=== PATIENT | female | born 1980 | race Hispanic/Latino ===

== ENCOUNTER → 2019-09-16 | Outpatient (CLI) | payer OTHER | END | disposition home or self-care (01) | LOC: RAH 10:00 | PROVIDERS: ATTEND Obstetrics & Gynecology | DX: Z12.31 Encounter for screening mammogram for malignant neoplasm of breast (principal); R10.2 Pelvic and perineal pain | CPT/HCPCS: 76856; 77067 ==

== ENCOUNTER → 2020-11-28 | Outpatient (CLI) | payer OTHER | END | disposition home or self-care (01) | LOC: RAH 16:10 | PROVIDERS: ATTEND Obstetrics & Gynecology | DX: Z12.31 Encounter for screening mammogram for malignant neoplasm of breast (principal) | CPT/HCPCS: 77067 ==

== ENCOUNTER → 2020-12-07 | Outpatient (CLI) | payer OTHER ==
[~2020-12-07] MED LIST: IOHEXOL 350 MG/ML 100ML INFUS..BTL IV ONE
== END | disposition home or self-care (01) ==
LOC: RAH 09:53
PROVIDERS: ATTEND Family Medicine
DX: R19.04 Left lower quadrant abdominal swelling, mass and lump (principal); K80.20 Calculus of gallbladder without cholecystitis without obstruction
CPT/HCPCS: 74177; Q9967

== ENCOUNTER → 2022-10-21 | Outpatient (CLI) | payer OTHER | END | disposition home or self-care (01) | LOC: RAH 08:04 | PROVIDERS: ATTEND Obstetrics & Gynecology | DX: N83.291 Other ovarian cyst, right side (principal) | CPT/HCPCS: 76856 ==

== ENCOUNTER 2023-10-05 02:00 | Emergency (ER) | payer OTHER ==
[~2023-10-05] VITALS: Ht 152.4 cm; Wt 80.7 kg
[2023-10-05 02:48] LABS: RAPID GROUP A STREP negative (NEGATIVE)
[2023-10-05 02:56] LABS: SARS-CoV-2, RNA, NAAT NEGATIVE SARS CoV-2 (NEGATIVE)
[2023-10-05 02:58] LABS: INFLUENZA TYPE A Negative For Type A (NEGATIVE); INFLUENZA TYPE B Negative For Type B (NEGATIVE)
[2023-10-05 04:09] LABS: APPEARANCE,URINE CLOUDY (CLEAR); BILIRUBIN,URINE NEGATIVE (NEGATIVE); COLOR,URINE LIGHT-ORANGE (YELLOW); GLUCOSE, URINE (UA) NEGATIVE (NEGATIVE); KETONES,URINE NEGATIVE (NEGATIVE); LEUKOCYTE ESTERASE ,URINE 500 Leu/uL (NEGATIVE); NITRATE,URINE NEGATIVE (NEGATIVE); OCCULT BLOOD,URINE LARGE (NEGATIVE); PROTEIN,URINE 30 mg/dL (NEGATIVE); UROBILINOGEN,URINE 0.2 mg/dL (0.2-1.0)
[2023-10-05 04:10] LABS: ADD UA MICROSCOPIC YES
[2023-10-05 04:12] LABS: BACTERIA,URINE MOD /HPF (None Seen); RBC,URINE TNTC /HPF (0-1); SQUAMOUS EPITHELIAL CELL,UR MOD /HPF (0-2); WBC CLUMP FEW /HPF (0-1); WBC,URINE TNTC /HPF (0-1)
[2023-10-05 04:24] LABS: BASOPHILS # (AUTO) 0.04 K/uL (0.00-0.20); BASOPHILS % (AUTO) 0.2 % (0.0-5.0); EOSINOPHILS % (AUTO) 0.5 % (0.0-8.0); HEMATOCRIT 24.9 % (36-48); LYMPHOCYTES # (AUTO) 1.3 K/uL (1.0-4.8); LYMPHOCYTES % (AUTO) 6.8 % (21.0-51.0); MEAN CORPUSCULAR HEMOGLOBIN 28.6 pg (27.0-33.0); MEAN CORPUSCULAR HGB CONC 32.9 g/dL (32.0-36.0); MEAN CORPUSCULAR VOLUME 86.8 fL (79-99); MONOCYTES # (AUTO) 0.9 K/uL (0.1-1.0); MONOCYTES % (AUTO) 4.5 % (3.0-13.0); NEUTROPHILS # (AUTO) 17.1 K/uL (1.8-7.7); PLATELET COUNT (AUTO) 521 K/uL (130-400); RED BLOOD CELL COUNT(AUTO) 2.87 MIL/uL (4.00-5.50); RED CELL DISTRIBUTION WIDTH 12.5 % (11.0-15.5); WHITE BLOOD COUNT (AUTO) 19.7 K/uL (4.8-10.8)
[2023-10-05 04:27] LABS: CARBON DIOXIDE 22 mmol/L (21-32); CHLORIDE 91 mmol/L (101-111); CREATININE 1.7 mg/dL (0.5-1.5); GLOMERULAR FILTR. RATE CALC 37 mL/min (>90); GLUCOSE,RANDOM 199 mg/dL (70-105); POTASSIUM 4.3 mmol/L (3.5-5.1); SODIUM SERUM 123 mmol/L (136-145); UREA NITROGEN, BLOOD 35 mg/dL (7-18)
[2023-10-05] MEDS: PHENAZOPYRIDINE HCL 200 MG TABLET PO ONE (04:31)
[2023-10-05] MEDS: HYDROXYZINE 25 MG TABLET PO ONE (04:31)
[2023-10-05] MEDS: METOCLOPRAMIDE 10 MG TABLET PO ONE (04:31)
[2023-10-05] MEDS: FAMOTIDINE 20MG TAB PO ONE (04:31)
[2023-10-05] MEDS: 0.9%NACL 1000ML 1,000 ML IV SCH (04:32)
[2023-10-05] MEDS: CEFTRIAXONE 2GM VIAL IVPB ONE (04:32)
[2023-10-05 04:34] LABS: ALANINE AMINOTRANSFERASE 31 U/L (12-78); ALBUMIN 2.4 g/dL (3.5-5.0); ASPARTATE AMINOTRANSFERASE 22 U/L (10-37); BILIRUBIN,TOTAL 0.3 mg/dL (0.2-1.0); CREATINE KINASE, TOTAL 18 U/L (21-232); TOTAL PROTEIN, SERUM 7.8 g/dL (6.0-8.3)
[2023-10-05 05:39] LABS: MAGNESIUM 2.2 mg/dL (1.80-2.40); THYROID STIMULATING HORMONE 1.23 uIU/mL (0.36-3.74)
[2023-10-05] MEDS ORDERED: PHEN-847 PO (06:01)
[2023-10-05] MEDS ORDERED: CEPH500B PO (06:01)
[2023-10-05 06:21] VITALS: BP 135/60; PULSE 108; RESP 18; O2SAT 100
== END 2023-10-05 06:38 | disposition home or self-care (01) ==
LOC: EDH 02:00
DX: N28.9 Disorder of kidney and ureter, unspecified (principal); E11.65 Type 2 diabetes mellitus with hyperglycemia; N39.0 Urinary tract infection, site not specified; Z20.822 Contact with and (suspected) exposure to COVID-19; Z90.49 Acquired absence of other specified parts of digestive tract
CPT/HCPCS: 99285; 96365; 71045; 87635; 96366; 84443; 82550; 83735; 84484; 80053; 83690; 85025; 87088; 87880; 87804 ×2; 83605; 81001; 36415; 93005; J7030; J0696

== ENCOUNTER → 2023-10-14 | Outpatient (CLI) | payer OTHER ==
[~2023-10-14] MED LIST changes: +CEPH500B PO; -IOHEXOL 350 MG/ML 100ML INFUS..BTL IV ONE; +PHEN-847 PO
[2023-10-14 08:48] LABS: BASOPHILS # (AUTO) 0.04 K/uL (0.00-0.20); BASOPHILS % (AUTO) 0.5 % (0.0-5.0); EOSINOPHILS # (AUTO) 0.15 K/uL (0.00-0.70); EOSINOPHILS % (AUTO) 1.9 % (0.0-8.0); HEMATOCRIT 28.1 % (36-48); IMMATURE GRANULOCYTE ABSOLUTE 0.03 K/uL (0-1); LYMPHOCYTES # (AUTO) 2.6 K/uL (1.0-4.8); LYMPHOCYTES % (AUTO) 32.1 % (21.0-51.0); MEAN CORPUSCULAR HEMOGLOBIN 28.5 pg (27.0-33.0); MEAN CORPUSCULAR HGB CONC 32.4 g/dL (32.0-36.0); MEAN CORPUSCULAR VOLUME 88.1 fL (79-99); MONOCYTES # (AUTO) 0.6 K/uL (0.1-1.0); NEUTROPHILS # (AUTO) 4.6 K/uL (1.8-7.7); NEUTROPHILS % (AUTO) 57.1 % (40.0-77.0); PLATELET COUNT (AUTO) 546 K/uL (130-400); RED BLOOD CELL COUNT(AUTO) 3.19 MIL/uL (4.00-5.50); RED CELL DISTRIBUTION WIDTH 12.9 % (11.0-15.5)
[2023-10-14 08:57] LABS: HEMOGLOBIN A1C 9.2 % (4.0-6.0)
[2023-10-14 09:06] LABS: % IRON SATURATION 15.9 % (22-44)
[2023-10-14 09:15] LABS: ALBUMIN 3.1 g/dL (3.5-5.0); BILIRUBIN,TOTAL 0.3 mg/dL (0.2-1.0); CREATININE 1.1 mg/dL (0.5-1.0); MAGNESIUM 1.8 mg/dL (1.80-2.40); POTASSIUM 5.6 mmol/L (3.5-5.1); THYROID STIMULATING HORMONE 1.79 uIU/mL (0.36-3.74); TOTAL PROTEIN, SERUM 8.2 g/dL (6.0-8.3)
[2023-10-14 09:35] LABS: APPEARANCE,URINE CLOUDY (CLEAR); BILIRUBIN,URINE NEGATIVE (NEGATIVE); COLOR,URINE LIGHT-YELLOW (YELLOW); GLUCOSE, URINE (UA) NEGATIVE (NEGATIVE); KETONES,URINE NEGATIVE (NEGATIVE); LEUKOCYTE ESTERASE ,URINE 250 Leu/uL (NEGATIVE); NITRATE,URINE NEGATIVE (NEGATIVE); OCCULT BLOOD,URINE SMALL (NEGATIVE); PH,URINE 5.5 (5.0-8.0); PROTEIN,URINE 70 mg/dL (NEGATIVE); UROBILINOGEN,URINE 0.2 mg/dL (0.2-1.0)
[2023-10-14 09:38] LABS: ADD UA MICROSCOPIC YES
[2023-10-14 09:41] LABS: MUCUS,URINE RARE LPF (None Seen); SQUAMOUS EPITHELIAL CELL,UR FEW /HPF (0-2); WBC CLUMP FEW /HPF (0-1); WBC,URINE 26-50 /HPF (0-1)
[2023-10-14 09:42] LABS: BACTERIA,URINE Few /HPF (None Seen)
[2023-10-14 09:44] LABS: ERYTHROCYTE SEDIMENTATION RATE 55 MM/HR (0-20)
== END | disposition home or self-care (01) ==
LOC: LAB 08:22
PROVIDERS: ATTEND Nurse Practitioner Family
DX: Z13.220 Encounter for screening for lipoid disorders (principal); Z13.21 Encounter for screening for nutritional disorder; Z13.29 Encounter for screening for other suspected endocrine disorder; E11.65 Type 2 diabetes mellitus with hyperglycemia; K58.9 Irritable bowel syndrome, unspecified; E78.00 Pure hypercholesterolemia, unspecified
CPT/HCPCS: 36415; 80053; 80061; 81001; 82043; 82306; 82570; 82728; 82746; 83036; 83525; 83540; 83550; 83735; 84439; 84443; 84481; 85025; 85045; 85651; 86140; 87088

== ENCOUNTER → 2023-11-13 | Outpatient (CLI) | payer OTHER ==
[2023-11-16 11:11] LABS: FREE KAPPA LIGHT CHAINS,S 66.2 mg/L (3.3-19.4)
[2023-11-16 18:09] LABS: ALBUMIN (IFE & ELECTROPHOR) 3.5 g/dL (2.9-4.4); ALBUMIN/GLOBULIN RATIO (IFE) 0.9 (0.7-1.7); ALPHA-1 (IFE & PEP) 0.3 g/dL (0.0-0.4); ALPHA-2 (IFE & PEP) 0.9 g/dL (0.4-1.0); BETA (IFE & ELP) 1.2 g/dL (0.7-1.3); GAMMA GLOBULINS (IFE & ELP) 1.8 g/dL (0.4-1.8); GLOBULIN TOTAL (IFE) 4.2 g/dL (2.2-3.9); IGA (IFE) 353 mg/dL (87-352); IGG (IMMUNOFIXATION) 1625 mg/dL (586-1602); IGM (IMMUNOFIXATION) 186 mg/dL (26-217); M-SPIKE (IEP) Not Observed g/dL (Not Observed); TOTAL PROTEIN 7.7 g/dL (6.0-8.5)
[2023-11-19 16:11] LABS: GAMMA URINE 12.5 % (.)
== END | disposition home or self-care (01) ==
LOC: LAB 11:27
PROVIDERS: ATTEND Internal Medicine
DX: D64.9 Anemia, unspecified (principal)
CPT/HCPCS: 36415; 83521; 84156; 84166; 86325; 86334

== ENCOUNTER → 2023-11-20 | Outpatient (CLI) | payer OTHER | END | disposition home or self-care (01) | LOC: RAH 16:02 | PROVIDERS: ATTEND Obstetrics & Gynecology | DX: N88.8 Other specified noninflammatory disorders of cervix uteri (principal); R10.2 Pelvic and perineal pain; N83.209 Unspecified ovarian cyst, unspecified side | CPT/HCPCS: 76856 ==

== ENCOUNTER → 2023-12-18 | Outpatient (CLI) | payer OTHER | END | disposition home or self-care (01) | LOC: RAH 08:33 | PROVIDERS: ATTEND Internal Medicine Gastroenterology | DX: K80.20 Calculus of gallbladder without cholecystitis without obstruction (principal); K76.0 Fatty (change of) liver, not elsewhere classified; R16.0 Hepatomegaly, not elsewhere classified; D64.9 Anemia, unspecified; R10.32 Left lower quadrant pain | CPT/HCPCS: 36415; 76700; 83020; 85651; 85732; 86880 ==

== ENCOUNTER 2023-12-22 11:23 | Day surgery (SDC) | payer OTHER ==
[~2023-12-22] VITALS: Ht 154.9 cm; Wt 76.2 kg
[2023-12-22] VITALS (11 sets, daily range): BP systolic 119–144; BP diastolic 59–73; PULSE 69–101; RESP 16
[2023-12-22] MEDS: 0.9%NACL 1000ML 1,000 ML IV ONE (12:01)
[2023-12-22] MEDS ORDERED: folic acid PO (12:06)
[2023-12-22] MEDS ORDERED: CETI10CA5 PO (12:06)
[2023-12-22] MEDS ORDERED: CYAN50009 PO (12:06)
[2023-12-22] MEDS ORDERED: INSU3INS3 SQ (12:06)
[2023-12-22] MEDS ORDERED: IRON1CAP32 PO (12:06)
[2023-12-22] MEDS ORDERED: MULT-1367 PO (12:06)
[2023-12-22] MEDS ORDERED: PROPOFOL 10 MG/ML 20ML VIAL IV ONE (14:10)
[2023-12-22] MEDS ORDERED: LIDOCAINE PF 100MG/5ML (2%) SYRINGE 5ML ONE (14:15)
[2023-12-22] MEDS ORDERED: GLYCOPYRROLATE 0.2 MG/ML 5 ML VIAL ONE (14:15)
== END 2023-12-22 16:00 | disposition home or self-care (01) ==
LOC: DAH 11:23 → ENDO 11:23
PROVIDERS: ATTEND Internal Medicine Gastroenterology
DX: R19.4 Change in bowel habit (principal); K64.0 First degree hemorrhoids; K29.00 Acute gastritis without bleeding; K29.50 Unspecified chronic gastritis without bleeding; K21.00 Gastro-esophageal reflux disease with esophagitis, without bleeding; D50.9 Iron deficiency anemia, unspecified; R10.32 Left lower quadrant pain; R19.7 Diarrhea, unspecified; R14.0 Abdominal distension (gaseous); R14.3 Flatulence; E11.9 Type 2 diabetes mellitus without complications; Z80.0 Family history of malignant neoplasm of digestive organs; Z91.040 Latex allergy status; Z83.3 Family history of diabetes mellitus; Z82.49 Family history of ischemic heart disease and other diseases of the circulatory system; Z79.4 Long term (current) use of insulin; Z79.02 Long term (current) use of antithrombotics/antiplatelets; Z90.49 Acquired absence of other specified parts of digestive tract
CPT/HCPCS: 45380; 43239; 82948; 88305; 88312; J7030; J2001; J2704; J3490; A4620; A4215 ×2; A4223; A4222; A4221; A4663; A4606

== ENCOUNTER → 2025-06-02 | Outpatient (CLI) | payer OTHER ==
[2025-06-02 09:21] LABS: IMMATURE GRANULOCYTE ABSOLUTE 0.06 K/uL (0-1); NUCLEATED RED BLOOD CELLS 0.0 % (0.0-0.19); PLATELET COUNT (AUTO) 311 K/uL (130-400); RED BLOOD CELL COUNT(AUTO) 3.02 MIL/uL (4.00-5.50); RED CELL DISTRIBUTION WIDTH 13.4 % (11.0-15.5); WHITE BLOOD COUNT (AUTO) 10.9 K/uL (4.8-10.8)
[2025-06-02 09:57] LABS: ASPARTATE AMINOTRANSFERASE 15.0 U/L (10-37); CREATININE 1.2 mg/dL (0.5-1.0); GLOMERULAR FILTR. RATE CALC 57.0 mL/min (>90); GLUCOSE,RANDOM 130.0 mg/dL (70-105); LDL DIRECT 56.0 mg/dL (0-99); SODIUM SERUM 136.0 mmol/L (136-145); TOTAL PROTEIN, SERUM 7.3 g/dL (6.0-8.3); UREA NITROGEN, BLOOD 32.0 mg/dL (7-18)
--- NOTE | 2025-06-03 08:12 | HMCIMG ---
Ultrasound Abdomen Clinical Indication: Generalized abdominal pain Technique: Real-time avina-scale and color Doppler sonography of the abdomen was performed. Comparison: No prior studies available for comparison. Findings: Liver: The liver measures 18 cm in craniocaudal dimension and shows increased echogenicity consistent with fatty infiltration. No focal hepatic lesion is identified. Gallbladder and Biliary Tree: The gallbladder wall measures 3 mm in thickness. Sludge and probable sand-like calculi are noted within the lumen. No pericholecystic fluid or definite wall edema is seen. The common bile duct measures 5 mm in diameter and is within normal limits. Pancreas: The pancreas is partly visualized and obscured by overlying bowel gas. The visible portions appear unremarkable. Spleen: The spleen measures 9.3 x 2.9 x 2.2 cm and appears normal in echotexture. Kidneys: The right kidney measures 11.3 x 5.5 x 5.0 cm. The left kidney measures 11.5 x 5.2 x 4.8 cm. Both kidneys show preserved cortical thickness and normal corticomedullary differentiation. No hydronephrosis or focal lesion is seen. Vessels: The inferior vena cava is patent and unremarkable. The aorta is partly visualized and appears normal in caliber. The main portal vein shows hepatopetal flow. Impression: * Fatty liver (hepatic steatosis). * Gallbladder sludge with possible microlithiasis (sand-like calculi); correlate clinically for biliary colic. * Common bile duct within normal limits. * No sonographic evidence of hydronephrosis or splenomegaly. /[place]
[2025-07-09 08:11] LABS: C DIFFICILE TOXIN A/B Detected (Not Detected); ENTEROAGGREGATIVE ECOLI Not Detected (Not Detected); GIARDIA LAMBLIA Not Detected (Not Detected); PLESIOMONAS SHIGELOIDES Not Detected (Not Detected); SAPOVIRUS Not Detected (Not Detected); SHIGELLA/ENTEROINVASIVE E COLI Not Detected (Not Detected); VIBRIO Not Detected (Not Detected); VIBRIO CHOLERAE Not Detected (Not Detected)
== END | disposition home or self-care (01) ==
LOC: RAH 08:42
PROVIDERS: ATTEND Internal Medicine Gastroenterology
DX: K76.0 Fatty (change of) liver, not elsewhere classified (principal); K82.8 Other specified diseases of gallbladder; R10.84 Generalized abdominal pain; R19.7 Diarrhea, unspecified; D64.9 Anemia, unspecified; Z79.899 Other long term (current) drug therapy
CPT/HCPCS: 36415; 76700; 80053; 80061; 82150; 82607; 83690; 84443; 85025; 87507